=== PATIENT | male | born 2000 | race Caucasian/White ===

== ENCOUNTER 2021-02-13 07:48 | Emergency (ER) | payer OTHER ==
[2021-02-13] MEDS ORDERED: Ibuprofen 800 MG TAB ONE (08:05)
[2021-02-13] MEDS ORDERED: Oseltamivir 75 MG CAP ONE (09:14)
== END 2021-02-13 09:20 | disposition home or self-care (01) ==
LOC: MADERS 07:48
DX: J10.1 Influenza due to other identified influenza virus with other respiratory manifestations (principal); F17.220 Nicotine dependence, chewing tobacco, uncomplicated
CPT/HCPCS: 87081; 87430; 87804; 99283